=== PATIENT | female | born 1940 | race Caucasian/White ===

== ENCOUNTER → 2018-12-24 | Day surgery (SDC) | payer MEDICARE ==
[2018-12-20 12:55] LABS: BASOPHILS # (AUTO) 0.1 (0.0-0.1); BASOPHILS % 0.9 % (0.0-1.0); EOSINOPHILS # (AUTO) 0.3 (0.0-0.4); EOSINOPHILS % 2.9 % (0.0-6.0); HEMATOCRIT 44.6 % (34.2-44.1); HEMOGLOBIN 13.6 g/dL (12.0-16.0); LYMPHOCYTES # (AUTO) 4.4 (1.0-3.2); LYMPHOCYTES % 50.1 % (18.0-39.1); MEAN CORPUSCULAR HEMOGLOBIN 31.2 pg (28-32); MEAN CORPUSCULAR HGB CONC 30.5 g/dL (31-35); MEAN CORPUSCULAR VOLUME 102.3 fL (81-99); MONOCYTES % 11.5 % (4.4-11.3); NEUTROPHILS % 34.4 % (38.7-80.0); PLATELET COUNT 165 x10e3/uL (140-360); RED BLOOD COUNT 4.36 x10e6/uL (3.6-5.1); RED CELL DISTRIBUTION WIDTH 14.5 % (11.7-14.4)
[2018-12-20 17:10] LABS: PLATELET ESTIMATE ADEQUATE; PLATELET MORPHOLOGY COMMENT FEW LARGE; RBC MORPHOLOGY COMMENT NORMAL
[~2018-12-24] MED LIST: ASA81 MG; BACLOFEN10 MG PO; BASAGLAR INJ; BENICAR20 MG PO; BENTYL PO; BIOTIN5 MG PO; CALCIUM PO; CYANOCOBAL1000 MCG/1; LANTUS100 UNIT/2 SC; LEVOTHYROXINE50 MCG PO; LIDOCAINE HCL 2% LOCAL INJ 5 ML SDV VIAL INJ ONE; NOVOLOG100 UNIT/1 SC; PANTOPRAZOLE SO40 MG PO; PROPOFOL IV EMULSION 10 MG/ML 20 ML VIAL ONE; ULTRACET TABLE1 EACH PO; VITAMIN D33000 UNIT PO; Z STARLIX; Z.0.COREG12.5 MG PO; Z.0.JANUVIA100 MG; Z.0.LISINOPRIL20 MG; Z.0.NABUMETONE750 MG; Z.0.NORVASC5 MG; Z.0.PREVACID30 MG; Z.0.SIMVASTATIN40 MG PO; Z.0.VITAMIN D50000 U; Z.1.METFORMIN HCL100
--- OUTSIDE RECORDS SUMMARY | 2018-12-24 10:33 | XMS REPORT ---
Author Author [facility] Address Unknown Phone Unavailable Care Team Providers Care Freight Engineer Name Role Phone Unavailable Unavailable Payers Payer Name Policy Type Policy Number Effective Date Expiration Date Problems This patient has no known problems. Allergies, Adverse Reactions, Alerts Allergy Name Allergy Type Status Severity Reaction(s) Onset Date Inactive Date Treating Clinician Comments tizanidine DA Active [place] 2016-09-10 00:00:00 Sulfa (Sulfonamide Antibiotics) DA Active MO 2014-02-14 00:00:00 morphine DA Active MO 2014-02-14 00:00:00 codeine DA Active MO 2014-02-14 00:00:00 sulfamethoxazole DA Active MO 2014-02-14 00:00:00 trimethoprim DA Active MO 2014-02-14 00:00:00 promethazine DA Active SV 2014-02-14 00:00:00 meperidine DA Active MO 2014-02-14 00:00:00 hydromorphone DA Active SV 2014-02-14 00:00:00 pregabalin DA Active SV 2014-02-14 00:00:00 Medications This patient has no known medications.
[2018-12-24 13:45] VITALS: BP 160/79
== END | disposition home or self-care (01) ==
LOC: OR 10:22
PROVIDERS: ATTEND Internal Medicine Gastroenterology
DX: K29.50 Unspecified chronic gastritis without bleeding (principal); K31.7 Polyp of stomach and duodenum; K44.9 Diaphragmatic hernia without obstruction or gangrene; Z71.3 Dietary counseling and surveillance; E66.01 Morbid (severe) obesity due to excess calories; E11.9 Type 2 diabetes mellitus without complications; I25.10 Atherosclerotic heart disease of native coronary artery without angina pectoris; I10 Essential (primary) hypertension; Z88.6 Allergy status to analgesic agent; Z88.2 Allergy status to sulfonamides; Z88.8 Allergy status to other drugs, medicaments and biological substances; Z91.048 Other nonmedicinal substance allergy status; Z01.810 Encounter for preprocedural cardiovascular examination; Z01.812 Encounter for preprocedural laboratory examination; Z79.82 Long term (current) use of aspirin; Z79.4 Long term (current) use of insulin; Z68.41 Body mass index [BMI] 40.0-44.9, adult; Z83.71 Family history of colonic polyps
CPT/HCPCS: 36415 ×2; 43239; 82948; 85025; 93005; J2001; J2704

== ENCOUNTER → 2019-11-01 | Outpatient (CLI) | payer MEDICARE ==
[~2019-11-01] MED LIST changes: +IOPAMIDOL 370 MG/ML 200 ML INFUS..BTL INJ ONE; -LIDOCAINE HCL 2% LOCAL INJ 5 ML SDV VIAL INJ ONE; -PROPOFOL IV EMULSION 10 MG/ML 20 ML VIAL ONE; +SODIUM CHLORIDE 0.9% 250ML 0 ML ONE; +SODIUM CHLORIDE 0.9% 500ML 0 ML ONE; +SODIUM CHLORIDE 0.9% 50ML 0 ML ONE
[2019-11-01 08:55] LABS: CREATININE, SERUM 1.48 mg/dL (0.57-1.11)
--- NOTE | 2019-11-01 10:15 | Diagnostic Imaging Report ---
EXAM: CT Chest WITHOUT contrast 11/01/2019 9:40 AM INDICATION: ^[id number] ^0940 ^ACUTE TRAUMA CHEST WALL W/ EFFUSION on 521 COMPARISON: Chest radiograph 02/07/2019 TECHNIQUE: Chest was scanned utilizing a multidetector helical scanner from the lung apex through the level of the adrenal glands without administration of IV contrast. Absence of intravenous contrast decreases sensitivity for detection of lymphadenopathy and vascular pathology. Coronal and sagittal reformations were obtained. Routine protocol was performed. Patient refuses to receive IV contrast. Protocol was changed to CT chest without contrast, which can also answer the referring physician's concerns. IV CONTRAST: None COMPLICATIONS: None RADIATION DOSE: Total DLP: 465.6 mGy*cm Estimated effective dose: (DLP x 0.015 x size factor) mSv CTDIvol has been reviewed. It is below the limits set by the Radiation Protocol Committee (RPC). FINDINGS: LINES/ TUBES: None. LUNGS AND AIRWAYS: Left lower lobe consolidation with volume loss and air bronchograms likely atelectasis but cannot exclude superimposed pneumonia. Otherwise, no consolidations in the remaining lungs. Linear scarring in the posterior right lower lobe. Mild central bilateral peribronchial wall thickening. No bronchiectasis. Major airways are normal in caliber and patent. PLEURA: Moderate to large low-attenuation left pleural effusion. No right pleural effusion. No pneumothorax. HEART AND MEDIASTINUM: The thyroid gland is normal. Few noncalcified mediastinal lymph nodes with the largest measuring 1 cm in transverse diameter in the right lower paratracheal region, nonspecific. Cardiomegaly. There is no pericardial effusion. Coronary artery calcifications. The thoracic aorta is normal in size and associated with mildly scattered atherosclerotic calcifications. The main pulmonary artery normal in size, measuring 2.6 cm in diameter. UPPER ABDOMEN: Cholecystectomy. A 1.1 cm low-attenuation exophytic cyst in the right kidney. Few calcified splenic granulomas. BONES: Mild multilevel degenerative changes of the thoracic spine. Mild wedge deformity of T12 vertebral body with endplate sclerosis of T11 and T12 vertebral bodies, likely chronic. SOFT TISSUES: Unremarkable. Specifically, no findings to suggest soft tissue posttraumatic abnormality in the chest wall. IMPRESSION: Moderate to large low-attenuation left pleural effusion with adjacent consolidation and volume loss suggestive of atelectasis. Differential diagnosis includes infection in the proper clinical setting. Mild bilateral central peribronchial wall thickening due to edema or bronchitis. Remaining lungs are unremarkable. No acute bony abnormalities or posttraumatic abnormalities in the chest wall. Signed by: Dr. Ivory Loaiza M.D. on 11/01/2019 10:12 AM
== END ==
LOC: CT 07:33
PROVIDERS: ATTEND Family Medicine
DX: S29.9XXA Unspecified injury of thorax, initial encounter (principal); J90 Pleural effusion, not elsewhere classified
CPT/HCPCS: 36415; 71250; 82565; 84520; J7040; J7050; Q9967

== ENCOUNTER → 2019-11-07 | Outpatient (CLI) | payer MEDICARE ==
[~2019-11-07] MED LIST changes: -IOPAMIDOL 370 MG/ML 200 ML INFUS..BTL INJ ONE; -SODIUM CHLORIDE 0.9% 250ML 0 ML ONE; -SODIUM CHLORIDE 0.9% 500ML 0 ML ONE; -SODIUM CHLORIDE 0.9% 50ML 0 ML ONE
[2019-11-07 14:46] LABS: HEMOGLOBIN 14.7 g/dL (12.0-16.0)
[2019-11-07 14:56] LABS: INR 0.89; PARTIAL THROMBOPLASTIN TIME 27.8 seconds (23.8-35.5); PROTHROMBIN TIME 12.6 seconds (11.9-14.5)
--- NOTE | 2019-11-07 16:05 | Diagnostic Imaging Report ---
X-ray chest AP portable History: Post left thoracentesis. Comparison: 02/07/2019. Findings: There is no pneumothorax. There is minimal residual left pleural effusion. No focal lung disease. Possible cardiomegaly. No skeletal abnormalities. Upper abdomen not well-visualized. Impression: No pneumothorax. Signed by: Mg Oro MD on 11/07/2019 4:01 PM
--- NOTE | 2019-11-07 16:05 | Diagnostic Imaging Report ---
US Guided Thoracentesis. History: Left pleural effusion. Health Sciences Manager: Mg Oro MD. E Learning Designer: None. Modality: Ultrasound Sedation: None. Anesthesia: Lidocaine 1% local infiltration. Estimated blood loss: < 5 cc. Technique: Informed written consent was obtained. Discussion of risks, benefits, and alternatives were made with the patient. The patient expressed understanding and agreed to proceed. A universal timeout was performed prior to starting the procedure. Maximal sterile precautions were utilized. The procedure room personnel used personal protective equipment. The operators additionally used sterile surgical gloves. A preliminary ultrasonography was performed to assess the target and determine a safe access site. It showed a pleural effusion. Pertinent ultrasound images were stored to the PACS for documentation. The patient was sat on the edge of the stretcher leaning forward onto a table. A posterior intercostal access site was selected and sterilely prepped and draped. Local anesthesia was administered. A catheter over the needle system was advanced into the Pleural space. Straw colored fluid was aspirated and the plastic catheter advanced into the pleural space. The catheter was then connected to a fluid recovery system. At the end of the procedure, the catheter was withdrawn and an aseptic dressing applied. The patient tolerated the procedure well. The total amount of fluid recovered was 0.750 liters. Postprocedure chest x-ray showed no pneumothorax. After uneventful recovery recovery, the patient was discharged from the department in stable condition. Complications: None immediate. Specimen: Sent to the lab. Impression: Successful ultrasound-guided thoracentesis of left pleural effusion as described above. Thank you for the opportunity to assist in the care of your patient. Signed by: Mg Oro MD on 11/07/2019 4:02 PM
[2019-11-07 16:42] LABS: BODY FLUID APPEARANCE CLOUDY; BODY FLUID COLOR STRAW; BODY FLUID TYPE PLEURAL
[2019-11-07 21:01] LABS: RBC,BODY FLUID 404 cells/uL; WBC,BODY FLUID 758 cells/uL
[2019-11-07 21:43] LABS: BASOPHILS,BODY FLUID 5 %; EOSINOPHILS,BODY FLUID 45 %; LYMPHOCYTES,BODY FLUID 16 %; MONO/MACROPHG,BODY FLUID 7 %; OTHER CELLS,BODY FLUID 22 %
[2019-11-07 21:44] LABS: NEUTROPHILS,BODY FLUID 5 %
--- NOTE | 2019-11-08 09:18 | NUR ---
contacted pt for followup after thoracentesis yesterday. pt states having some soreness isaías when coughs but took tylenol and it has seemed to help. no fever or sob. asked about antibiotics, explained to her during sterile procedure there wasnt a need for antibiotics but if culture from pleural fluid came back infectious the doctor would contact her and place her on antibiotics then
== END ==
LOC: US 13:52
PROVIDERS: ATTEND Internal Medicine Pulmonary Disease
DX: J90 Pleural effusion, not elsewhere classified (principal)
CPT/HCPCS: 32555; 36415; 71045; 82945; 83615; 84157; 85014; 85049; 85610; 85730; 87070; 87102; 87116; 87205; 87206; 88112; 88305; 89051

== ENCOUNTER → 2019-11-20 | Outpatient (CLI) | payer MEDICARE ==
[2019-11-20 12:59] LABS: BASOPHILS # (AUTO) 0.1 (0.0-0.1); BASOPHILS % 1.1 % (0.0-1.0); EOSINOPHILS # (AUTO) 0.6 (0.0-0.4); EOSINOPHILS % 6.3 % (0.0-6.0); HEMATOCRIT 45.9 % (34.2-44.1); HEMOGLOBIN 14.4 g/dL (12.0-16.0); LYMPHOCYTES # (AUTO) 3.9 (1.0-3.2); LYMPHOCYTES % 43.6 % (18.0-39.1); MEAN CORPUSCULAR HEMOGLOBIN 31.2 pg (28-32); MEAN CORPUSCULAR HGB CONC 31.4 g/dL (31-35); MEAN CORPUSCULAR VOLUME 99.4 fL (81-99); MONOCYTES # (AUTO) 0.8 (0.2-0.8); MONOCYTES % 9.2 % (4.4-11.3); NEUTROPHILS # (AUTO) 3.5 (2.1-6.9); NEUTROPHILS % 39.5 % (38.7-80.0); RED BLOOD COUNT 4.62 x10e6/uL (3.6-5.1); RED CELL DISTRIBUTION WIDTH 14.4 % (11.7-14.4)
[2019-11-20 13:01] LABS: PLATELET COUNT 145 x10e3/uL (140-360)
--- NOTE | 2019-11-20 13:06 | Diagnostic Imaging Report ---
EXAMINATION: CHEST 2 VIEWS INDICATION: Pleural effusion COMPARISON: Chest radiograph 11/07/2019 FINDINGS: LINES/TUBES:None LUNGS:The lungs are moderately inflated. There is left basilar opacity silhouetting the left mj diaphragm. PLEURA:Moderate left pleural effusion. No pneumothorax. MEDIASTINUM:The cardiomediastinal silhouette appears unchanged in size and shape. BONES/SOFT TISSUES:No acute osseous injury. Degenerative changes of the visualized spine. ABDOMEN:No free air under the diaphragm. Status post cholecystectomy. IMPRESSION: Moderate left pleural effusion and associated left basilar subsegmental atelectasis. Signed by: Kori Bernal MD on 11/20/2019 1:03 PM
== END ==
LOC: RAD 12:06
PROVIDERS: ATTEND Internal Medicine Pulmonary Disease
DX: J90 Pleural effusion, not elsewhere classified (principal)
CPT/HCPCS: 36415; 71046; 85025

== ENCOUNTER → 2019-11-28 | Outpatient (CLI) | payer MEDICARE ==
[2019-11-28 11:55] LABS: HEMOGLOBIN 14.7 g/dL (12.0-16.0)
[2019-11-28 12:21] LABS: INR 0.95; PROTHROMBIN TIME 13.1 seconds (11.9-14.5)
[2019-11-28 12:22] LABS: PARTIAL THROMBOPLASTIN TIME 29.5 seconds (23.8-35.5)
--- NOTE | 2019-11-28 13:23 | Diagnostic Imaging Report ---
US Guided Thoracentesis. History: Recurrent hydrothorax. Request for thoracentesis. Dish Cloth Inspector: Mg Oro MD. Performance Improvement Analyst: None. Modality: Ultrasound Sedation: None. Anesthesia: Lidocaine 1% local infiltration. Estimated blood loss: < 5 cc. Technique: Informed written consent was obtained. Discussion of risks, benefits, and alternatives were made with the patient. The patient expressed understanding and agreed to proceed. A universal timeout was performed prior to starting the procedure. Maximal sterile precautions were utilized. The procedure room personnel used personal protective equipment. The operators additionally used sterile surgical gloves. A preliminary ultrasonography was performed to assess the target and determine a safe access site. It showed a pleural effusion. Pertinent ultrasound images were stored to the PACS for documentation. The patient was sat on the edge of the stretcher leaning forward onto a table. A posterior intercostal access site was selected and sterilely prepped and draped. Local anesthesia was administered. A catheter over the needle system was advanced into the Pleural space. Straw colored fluid was aspirated and the plastic catheter advanced into the pleural space. The catheter was then connected to a fluid recovery system. At the end of the procedure, the catheter was withdrawn and an aseptic dressing applied. The patient tolerated the procedure well. The total amount of fluid recovered was 0.8 liters. Postprocedure chest x-ray showed no pneumothorax. After uneventful recovery recovery, the patient was discharged from the department in stable condition. Complications: None immediate. Specimen: Sent to the lab. Impression: Successful ultrasound-guided thoracentesis of left pleural effusion as described above. Thank you for the opportunity to assist in the care of your patient. Signed by: Mg rOo MD on 11/28/2019 1:23 PM
--- NOTE | 2019-11-28 13:26 | Diagnostic Imaging Report ---
X-ray chest frontal view Comparison: 11/20/2019 History: Post left thoracentesis Findings: Near resolution of the left pleural effusion. No pneumothorax. No other changes. Impression: No left pneumothorax. Signed by: Mg Oro MD on 11/28/2019 1:23 PM
[2019-11-28 14:56] LABS: GLUCOSE,BODY FLUID 208 mg/dL
[2019-11-28 18:09] LABS: RBC,BODY FLUID 19 cells/uL; WBC,BODY FLUID 137 cells/uL
[2019-11-28 18:10] LABS: BODY FLUID APPEARANCE SL.CLOUDY; BODY FLUID COLOR STRAW; BODY FLUID TYPE PLEURAL
[2019-11-28 18:14] LABS: EOSINOPHILS,BODY FLUID 54 %; LYMPHOCYTES,BODY FLUID 29 %; MONO/MACROPHG,BODY FLUID 6 %; NEUTROPHILS,BODY FLUID 11 %
== END ==
LOC: US 11:29
PROVIDERS: ATTEND Internal Medicine Pulmonary Disease
DX: J90 Pleural effusion, not elsewhere classified (principal)
CPT/HCPCS: 32555; 36415; 71045; 82040; 82945; 83615; 85014; 85049; 85610; 85730; 87070; 87102; 87116; 87205; 87206; 88112; 88305; 89051

== ENCOUNTER → 2019-12-18 | Outpatient (CLI) | payer MEDICARE ==
--- NOTE | 2019-12-18 09:58 | Diagnostic Imaging Report ---
Exam: CHEST 2 VIEWS Date: 12/18/2019 9:53 AM Indication: Fluid in lungs. Comparison: 11/28/2019 FINDINGS: Lines/Tubes:None Lungs:There is blunting of the left costophrenic angle with a small hazy opacity. Right lung is clear. Lungs are hypoexpanded. Negative for pneumothorax. Heart/Mediastinum:The cardiomediastinal silhouette is normal in size and contour. Bones/Soft Tissues: No acute osseous abnormality. Upper abdomen: Unremarkable. IMPRESSION: Small left pleural effusion/atelectasis. Signed by: Beka Branham MD on 12/18/2019 9:54 AM
== END ==
LOC: RAD 09:05
PROVIDERS: ATTEND Internal Medicine Pulmonary Disease
DX: J90 Pleural effusion, not elsewhere classified (principal)
CPT/HCPCS: 71046

== ENCOUNTER → 2019-12-31 | Outpatient (CLI) | payer MEDICARE ==
[2019-12-31 11:15] LABS: HEMOGLOBIN 14.5 g/dL (12.0-16.0)
[2019-12-31 11:30] LABS: PARTIAL THROMBOPLASTIN TIME 32.6 seconds (23.8-35.5)
[2019-12-31 11:44] LABS: INR 0.99; PROTHROMBIN TIME 13.6 seconds (11.9-14.5)
--- NOTE | 2019-12-31 12:39 | Diagnostic Imaging Report ---
TECHNIQUE: Frontal view of the chest. INDICATION: ^post left thoracentesis ^[id number] ^1214 ^pt to go to CT after cxr COMPARISON: 12/18/2019 DISCUSSION: Limited evaluation due to portable technique. Lines and hardware: None Heart and mediastinum: Cardiomediastinal silhouette is obscured due to low lung lines. Lungs and pleura: Lungs are hypoexpanded limiting evaluation. Residual trace left pleural effusion is noted. Right lung is clear. Negative for large pneumothorax. Soft tissues and bones: No acute abnormality. IMPRESSION: Hypoexpanded lungs. Trace residual left pleural effusion. Negative for large pneumothorax. Signed by: Beka Branham MD on 12/31/2019 12:35 PM
--- NOTE | 2019-12-31 12:41 | Diagnostic Imaging Report ---
Ultrasound guided left thoracentesis. Clinical History: Small left pleural effusion. Removal fluid prior to CT. Modality: Ultrasound. Sedation: None. Calciner Operator Helper: Beka Branham M.D. Ordnance Handler: None. Estimated Blood Loss: 1cc Specimen: 50 cc of serosanguineous/yellow pleural fluid. Technique: Informed consent was obtained. The risks of pain, bleeding, infection, lung collapse/pneumothorax, injury to adjacent structures, and adverse medication reactions were discussed with the patient. The patient's left hemithorax was scanned from the back, with the patient in a sitting position. After the largest fluid pocket area was marked, the skin was prepped and draped in the usual sterile manner. The area was anesthetized with 1% lidocaine, a 5 F one-step catheter was advanced into the pleural space under ultrasound guidance. Multiple temperature made to manipulate the catheter including retracting and obtaining access at a second site however given this new small size of the effusion flow was constantly interrupted due to adjacent lung being occlusive to the catheter. After completion of drainage, the catheter was removed. There was no evidence of immediate complication. Post procedure chest x-ray and CT are negative for pneumothorax. Patient disposition: Patient was discharged from the ultrasound department after the thoracentesis in good condition. Impression: Successful and uncomplicated ultrasound guided small volume left thoracentesis. Signed by: Beka Branham MD on 12/31/2019 12:38 PM
--- NOTE | 2019-12-31 13:08 | Diagnostic Imaging Report ---
EXAM: CT Chest WITHOUT intravenous contrast 12/31/2019 12:31 PM INDICATION: ^PLEURAL EFFUSION COMPARISON: CT dated 11/01/2019 TECHNIQUE: Chest was scanned utilizing a multidetector helical scanner from the lung apex through the level of the adrenal glands without administration of IV contrast. Coronal and sagittal reformations were obtained. Routine protocol was performed. IV CONTRAST: None RADIATION DOSE: Total DLP: 497 mGy*cm. Dose modulation, iterative reconstruction, and/or weight based adjustment of the mA/kV was utilized to reduce the radiation dose to as low as reasonably achievable. COMPLICATIONS: None FINDINGS: Limited due to lack of IV contrast. LINES/ TUBES: None. LUNGS AND AIRWAYS: Airways are patent. Negative for focal consolidation or suspicious pulmonary opacity. No suspicious pulmonary nodule or mass is identified. PLEURA: Small left pleural effusion is noted, significantly decreased when compared to CT dated 11/01/2019. A few foci of air within the pleural effusion are likely related to thoracentesis performed prior to the CT. Negative for pneumothorax or right pleural effusion. HEART AND MEDIASTINUM: The thyroid gland is normal. No mediastinal, hilar or axillary lymphadenopathy within the limitations of noncontrast technique. Stable multiple nonenlarged mediastinal lymph nodes. Question left hilar adenopathy The heart is normal in size.. There is no pericardial effusion. Coronary artery calcifications are noted. UPPER ABDOMEN: Stable cholecystectomy changes. BONES: Negative for acute osseous abnormality. Inferior endplate concave deformity of a lower thoracic vertebral body is similar including focal adjacent degenerative change. Moderate multilevel degenerative changes of the thoracic spine are noted with exaggerated thoracic kyphosis. No suspicious lytic or blastic lesion is identified. SOFT TISSUES: Unremarkable. IMPRESSION: 1. Small left pleural effusion, significantly decreased in size compared to 11/01/2019. 2. Stable nonenlarged multiple mediastinal lymph nodes. Question left hilar fullness/lymphadenopathy. These findings could relate to underlying or resolving infection. Consider obtaining a contrast enhanced CT in the future to better evaluate the mediastinum and pleural effusion if patient's renal function allows. Signed by: Beka Branham MD on 12/31/2019 1:05 PM
[2019-12-31 13:50] LABS: BODY FLUID APPEARANCE CLOUDY; BODY FLUID COLOR YELLOW; BODY FLUID TYPE PLEURAL
[2019-12-31 13:51] LABS: RBC,BODY FLUID 2334 cells/uL; WBC,BODY FLUID 169 cells/uL
[2019-12-31 14:43] LABS: EOSINOPHILS,BODY FLUID 10 %; LYMPHOCYTES,BODY FLUID 86 %; MONO/MACROPHG,BODY FLUID 4 %
== END ==
LOC: US 10:35
PROVIDERS: ATTEND Internal Medicine Pulmonary Disease
DX: J90 Pleural effusion, not elsewhere classified (principal)
CPT/HCPCS: 32555; 36415; 71045; 71250; 82945; 83615; 84157; 84311; 85014; 85049; 85610; 85730; 87070; 87116; 87205; 87206; 88112; 88305; 89051

== ENCOUNTER → 2020-02-04 | Outpatient (CLI) | payer MEDICARE ==
--- NOTE | 2020-02-04 15:46 | Diagnostic Imaging Report ---
Examination: CT head without contrast Clinical Indication: ^[id number] ^1336 ^LEFT SIDED HEADACHE / PAIN BEHIND LEFT EYE. Technique: Transaxial noncontrast images from the skull base through the vertex were obtained. Sagittal and coronal reformatted images were done. Dose modulation, iterative reconstruction, and/or weight based adjustment of the mA/kV was utilized to reduce the radiation dose to as low as reasonably achievable. Comparison: None. Findings: Scalp: No abnormalities. Bones: Intact. No fractures. No blastic or lytic lesions. Brain sulci: Mild generalized volume loss for patient's age. Ventricles: No hydrocephalus. Extra-axial space: No abnormalities. Parenchyma: There are subtle patchy areas of low-attenuation within subcortical and periventricular white matter, nonspecific, but could represent microvascular ischemic disease. No masses, hemorrhage, or acute or chronic cortical based vascular insults. Suprasellar region: No abnormalities. Craniocervical junction: The foramen magnum is patent. No Chiari one malformation. Incidental findings: Atherosclerotic calcification of the cavernous and supraclinoid internal carotid and V4 segments of the bilateral vertebral arteries. Impression: 1. No acute intracranial finding. 2. Mild generalized volume loss and chronic microvascular ischemic change. Signed by: Dr. Tia Siegel M.D. on 02/04/2020 3:43 PM
--- NOTE | 2020-02-04 20:45 | Diagnostic Imaging Report ---
Study made available for interpretation on 02/04/2020 at 8:40 PM. EXAMINATION: CT of the face without contrast HISTORY: 80 year old female with left facial/eye pain (behind eye), headache COMPARISON: Head CT performed the same day TECHNIQUE: Multidetector helical axial images were acquired through the face without contrast. Dose modulation, iterative reconstruction, and/or weight based adjustment of the mA/kV was utilized to reduce the radiation dose to as low as reasonably achievable. FINDINGS: Bones: Unremarkable. Facial soft tissues: Unremarkable. Paranasal sinuses and drainage pathways: The frontal, ethmoidal, sphenoid and maxillary sinuses are clear. The ostiomeatal units, fronto-nasal and spheno-ethmoidal recesses are clear. Orbits contents: The lenses are not visualized, likely from prior cataract surgery. Nasal septum: Midline. Anatomic variations: No significant anatomic variations. Dentition: No acute abnormality of the visualized teeth. TMJs: Prominent degenerative changes of the bilateral TMJs worse on the right. IMPRESSION: The lenses are not visualized, likely from prior cataract surgery, otherwise no orbital abnormalities. Signed by: Dr. Ana Paula Faust M.D. on 02/04/2020 8:42 PM
== END ==
LOC: CT 13:36
PROVIDERS: ATTEND Family Medicine
DX: H57.12 Ocular pain, left eye (principal); R51.9 Headache, unspecified
CPT/HCPCS: 70450; 70486

== ENCOUNTER 2020-02-09 09:43 | Emergency (ER) | payer MEDICARE ==
[~2020-02-09] VITALS: Ht 162.6 cm; Wt 98.4 kg
[2020-02-09] MEDS ORDERED: HYDROCODONE/APAP 7.5MG-325MG 1 EA TAB PO PRN (10:15)
[2020-02-09] MEDS ORDERED: ULTRAM50 MG PO (10:59)
[2020-02-09] MEDS ORDERED: COLACE100 MG PO (10:59)
[2020-02-09 11:07] VITALS: BP 164/73
== END 2020-02-09 11:36 | disposition home or self-care (01) ==
LOC: ER 10:14
DX: M79.605 Pain in left leg (principal); M16.12 Unilateral primary osteoarthritis, left hip; I10 Essential (primary) hypertension; E11.9 Type 2 diabetes mellitus without complications; E78.00 Pure hypercholesterolemia, unspecified; K21.9 Gastro-esophageal reflux disease without esophagitis
CPT/HCPCS: 99284